=== PATIENT | female | born 1935 | race Caucasian/White ===

== ENCOUNTER 2016-10-24 11:24 | Emergency (ER) | payer MEDICARE ==
--- NOTE | 2016-10-24 12:31 | ERRECORD ---
[facility] EMERGENCY RECORD HPI WOUND CHECK (12:17 JLOY) CHIEF COMPLAINT: Patient presents for evaluation of Pt had a lipoma removed from her left upper back [address] Morillo. He left a drain in with instructions to follow up on Wednesday for removal. Pt's daughter has been caring for her but had to leave today. The patient became confused between the standard postop instructions and the specific handwritten instructions and was unsure if she should remove the op-site bandage over the drain. Review of the specific instructions reveal she is to leave the op-site in place until wednesday. Pt has had very little drainage and the sutured wound is c/d/i. No pain. No fever. No other concerns. HISTORIAN: History provided by patient, History provided by patient's family. TIME COURSE: Patient unable to describe onset of symptoms, Symptoms are improving. ASSOCIATED WITH: No associated chills, No associated drainage, No associated fever, No associated proximal streaking, No associated redness. EXACERBATED BY: Patient's condition exacerbated by nothing. RELIEVED BY: Patient's condition relieved by time. ROS (12:20 JLOY) CONSTITUTIONAL: Historian denies chills, denies fever. GI: Historian denies nausea, denies vomiting. SKIN: Historian denies cellulitis, denies rash. PAST MEDICAL HISTORY MEDICAL HISTORY: Notes: ARTHRITIS, Flu vaccine not up to date, Pneumococcal vaccine up to date, Past medical history includes history of diabetes, Past medical history includes endocrine disease, hypothyroidism, Past medical history includes history of hyperlipidemia, Past medical history includes history of hypertension. (11:34 EPIE) FEMALE SURGICAL HISTORY: Lipoma removal on back, BREAT REDUCTION, Surgical history of appendectomy, Surgical history of hysterectomy, Surgical history of orthopedic surgery, LEFT FOOT, LEFT INDEX FINGER, Surgical history of tonsillectomy. (11:34 EPIE) SOCIAL HISTORY: Patient drinks socially, Patient denies drug use, Patient has no smoking history. (11:34 EPIE) NOTES: Nursing records reviewed, Agree with nursing records. (12:22 JLOY) KNOWN ALLERGIES codeine sulfate morphine (bulk) CURRENT MEDICATIONS traMADol: TABLET : Strength - 50 mg : ORAL Patient Dose: 50 mg Oral every 6 hours PRN. (11:35 EPIE) Flonase: &a-1R&a+25V*p+0X*[id number]*c202B*c15G*c2P*p-0X&a-25V&a+1R Name: Dot Post : 1935 F81 MedRec: [id number] AcctNum: [id number] Prepared: Sat Oct 24, 2016 12:26 by Interface Page [address] [facility] EMERGENCY RECORD SPRAY, SUSPENSION : Strength - 50 mcg : NASAL Patient Dose: 2 spray(s) 2 times a day. (11:37 EPIE) Claritin: TABLET : Strength - 10 mg : ORAL Patient Dose: 10 mg Oral once a day. (11:37 EPIE) Synthroid: TABLET : Strength - 100 mcg : ORAL Patient Dose: UNK. (11:37 EPIE) amLODIPine: TABLET : Strength - 10 mg : ORAL Patient Dose: UNK. (11:38 EPIE) atorvastatin: TABLET : Strength - 10 mg : ORAL Patient Dose: UNK. (11:38 EPIE) amitriptyline: TABLET : Strength - 10 mg : ORAL Patient Dose: UNK. (11:38 EPIE) losartan: TABLET : Strength - 100 mg : ORAL Patient Dose: UNK. (11:38 EPIE) carvedilol: TABLET : Strength - 12.5 mg : ORAL Patient Dose: UNK. (11:39 EPIE) metFORMIN: TABLET : Strength - 500 mg : ORAL Patient Dose: UNK. (11:39 EPIE) VITAL SIGNS (11:30 EPIE) VITAL SIGNS: BP: 156/69, Pulse: 69, Resp: 20, Temp: 98.4 (Oral), Pain: 1, O2 sat: 95 on Room Air, Time: 10/24/2016 11:30. PHYSICAL EXAM (12:21 [facility]) CONSTITUTIONAL: Vital signs reviewed, Patient appears non toxic, Patient alert and oriented to person, place and time. EYES: Eye exam included findings of eyelids normal to inspection, Pupils equally round and reactive to light, Conjunctiva normal. RESPIRATORY CHEST: Respiratory exam included findings of no respiratory distress, Chest exam included findings of chest movement symmetrical. BACK: Back exam included findings of, left upper back with long sutured incision well healing with no redness, drainage, or tenderness. Palpable drain beneath with exit of the drain caudally through and c/d/I exit incision. Op-site over the exit is well adhered with no signs of drainage or infection. Bulb of drain with small serosanguinous fluid. NEURO: Enid coma scale 15, Neuro exam findings include patient oriented to person, place and time, Speech normal. SKIN: Skin exam included findings of skin warm, dry, and normal in color, no rash. PSYCHIATRIC: Normal affect. &a-1R&a+25V*p+0X*r7518B*c202B*c15G*c2P*p-0X&a-25V&a+1R Name: Dot Post : 1935 F81 MedRec: [id number] AcctNum: [id number] Prepared: Sat Oct 24, 2016 12:26 by Interface Page [address] [facility] EMERGENCY RECORD PROBLEM LIST No recorded problems DIAGNOSIS (12:15 JLOY) FINAL: PRIMARY: OTH SPC COMP SURG MED CARE NEC INIT. PRESCRIPTION No recorded prescriptions DISPOSITION PATIENT: Disposition Type: Discharge, Disposition: *Discharge Home. (12:15 JLOY) Patient left the department. (12:25 EPIE) Delgado: EPIKaila=SOFI Clancy, Jaclyn JLOY=MD Harpreet, Larry &a-1R&a+25V*p+0X*[id number]*c202B*c15G*c2P*p-0X&a-25V&a+1R Name: Dot Post : 1935 F81 MedRec: [id number] AcctNum: [id number] Prepared: Sat Oct 24, 2016 12:26 by Interface Page 3 of 3 pMD MTDD
--- NOTE | 2016-10-24 12:34 | PICIS ---
[facility] EMERGENCY RECORD TRIAGE (11:32 EPIE) TRIAGE NOTES: Pt states she got surgery morning. Pt had a removal of a lipoma on her back. Pt states she might need her dressing changed. (11:32 EPIE) PATIENT: NAME: Dot Post, AGE: 81, GENDER: female, : Wed1935, TIME OF GREET: Sat Oct 24, 2016 11:26, PREFERRED LANGUAGE: Japanese, ETHNICITY: Not or , ECODE BILLING MAP: [facility], SSN: [id number], Zip Code: [address], KG WEIGHT: 61.23, PHONE: , , , PERSON ID: [id number], PCP: Tino DAVIS LUKE. (11:32 EPIE) COMPLAINT: CHECK SURGICAL SITE. (11:32 EPIE) ADMISSION: URGENCY: 4 Non Urgent, ADMISSION SOURCE: Home, TRANSPORT: CAR, BED: TRIAGE. (11:32 EPIE) TRIAGE SCREENING: Patient denies suicidal ideation, Patient denies presence of domestic violence. (11:34 EPIE) TREATMENTS IN PROGRESS: Treatments given Prehospital: none. (11:34 EPIE) PROVIDERS: TRIAGE NURSE: Jaclyn Clancy RN. (11:32 EPIE) VITAL SIGNS: BP 156/69, Pulse 69, Resp 20, Temp 98.4, (Oral), Pain 1, O2 Sat 95, on Room Air, Time 10/24/2016 11:30. (11:30 EPIE) PREVIOUS VISIT ALLERGIES: codeine sulfate, morphine (bulk). (11:32 EPIE) codeine sulfate, morphine (bulk). (11:34 EPIE) KNOWN ALLERGIES codeine sulfate morphine (bulk) CURRENT MEDICATIONS traMADol: TABLET : Strength - 50 mg : ORAL Patient Dose: 50 mg Oral every 6 hours PRN. (11:35 EPIE) Flonase: SPRAY, SUSPENSION : Strength - 50 mcg : NASAL Patient Dose: 2 spray(s) 2 times a day. (11:37 EPIE) Claritin: TABLET : Strength - 10 mg : ORAL Patient Dose: 10 mg Oral once a day. (11:37 EPIE) Synthroid: TABLET : Strength - 100 mcg : ORAL Patient Dose: UNK. (11:37 EPIE) amLODIPine: TABLET : Strength - 10 mg : ORAL Patient Dose: UNK. (11:38 EPIE) atorvastatin: TABLET : Strength - 10 mg : ORAL Patient Dose: UNK. (11:38 EPIE) amitriptyline: TABLET : Strength - 10 mg : ORAL &a-1R&a+25V*p+0X*o3306Z*c202B*c15G*c2P*p-0X&a-25V&a+1R Name: Dot Post : 1935 F81 MedRec: [id number] AcctNum: [id number] Prepared: Sat Oct 24, 2016 12:32 by Interface Page 1 of 4 pMD [facility] EMERGENCY RECORD Patient Dose: UNK. (11:38 EPIE) losartan: TABLET : Strength - 100 mg : ORAL Patient Dose: UNK. (11:38 EPIE) carvedilol: TABLET : Strength - 12.5 mg : ORAL Patient Dose: UNK. (11:39 EPIE) metFORMIN: TABLET : Strength - 500 mg : ORAL Patient Dose: UNK. (11:39 EPIE) VITAL SIGNS (11:30 EPIE) VITAL SIGNS: BP: 156/69, Pulse: 69, Resp: 20, Temp: 98.4 (Oral), Pain: 1, O2 sat: 95 on Room Air, Time: 10/24/2016 11:30. NURSING ASSESSMENT: SKIN (11:42 EPIE) CONSTITUTIONAL: Patient arrives ambulatory, Gait steady, History obtained from patient, Patient appears comfortable, Patient cooperative, Patient alert, Oriented to person, place and time, Skin warm, Skin dry, Skin normal in color, Mucous membranes pink, Mucous membranes moist, Patient is well-groomed, Pt states she got surgery morning. Pt had a removal of a lipoma on her back. Pt states she might need her dressing changed. She states that she has conflicting paperwork on whether she is supposed to change her dressing daily. PAIN: Patient rates pain as 0 out of 10. SKIN: Skin assessment findings include skin warm, Skin dry, Skin normal in color, Notes: Pt has surgical incision to upper back. Wound well approximated, no redness, or swelling. No drainage noted from wound. Pt has TRICIA Drain draining serosanginous fluids. NURSING ASSESSMENT: TUBES AND PORTS (11:41 EPIE) TUBES AND PORTS: Tube present, TRICIA Drain, to upper back, No signs of infection at insertion site. NURSING PROCEDURE: DISCHARGE NOTE (12:20 EPIE) DISCHARGE: Patient discharged to home, ambulating without assistance, family driving, accompanied by other family member, Summary of Care printed/ provided, Discharge instructions given to patient, Simple or moderate discharge teaching performed, Above person(s) verbalized understanding of discharge instructions and follow-up care. BELONGINGS: Belongings and valuables with patient upon arrival to the Emergency Department include:, Belongings and valuables with patient at time of discharge include:, Belongings remain with patient, Valuables remain with patient. NURSING PROCEDURE: NURSE NOTES (11:59 BDON) NURSES NOTES: Warm blanket given to patient. &a-1R&a+25V*p+0X*x2300Q*c202B*c15G*c2P*p-0X&a-25V&a+1R Name: Dot Post : 1935 F81 MedRec: [id number] AcctNum: [id number] Prepared: Ángel Oct 24, 2016 12:32 by Interface Page 2 of 4 pMD [facility] EMERGENCY RECORD HPI WOUND CHECK (12:17 [facility]) CHIEF COMPLAINT: Patient presents for evaluation of Pt had a lipoma removed from her left upper back [address] Morillo. He left a drain in with instructions to follow up on Wednesday for removal. Pt's daughter has been caring for her but had to leave today. The patient became confused between the standard postop instructions and the specific handwritten instructions and was unsure if she should remove the op-site bandage over the drain. Review of the specific instructions reveal she is to leave the op-site in place until wednesday. Pt has had very little drainage and the sutured wound is c/d/i. No pain. No fever. No other concerns. HISTORIAN: History provided by patient, History provided by patient's family. TIME COURSE: Patient unable to describe onset of symptoms, Symptoms are improving. ASSOCIATED WITH: No associated chills, No associated drainage, No associated fever, No associated proximal streaking, No associated redness. EXACERBATED BY: Patient's condition exacerbated by nothing. RELIEVED BY: Patient's condition relieved by time. ROS (12:20 JL) CONSTITUTIONAL: Historian denies chills, denies fever. GI: Historian denies nausea, denies vomiting. SKIN: Historian denies cellulitis, denies rash. PAST MEDICAL HISTORY MEDICAL HISTORY: Notes: ARTHRITIS, Flu vaccine not up to date, Pneumococcal vaccine up to date, Past medical history includes history of diabetes, Past medical history includes endocrine disease, hypothyroidism, Past medical history includes history of hyperlipidemia, Past medical history includes history of hypertension. (11:34 EPIE) FEMALE SURGICAL HISTORY: Lipoma removal on back, BREAT REDUCTION, Surgical history of appendectomy, Surgical history of hysterectomy, Surgical history of orthopedic surgery, LEFT FOOT, LEFT INDEX FINGER, Surgical history of tonsillectomy. (11:34 EPIE) SOCIAL HISTORY: Patient drinks socially, Patient denies drug use, Patient has no smoking history. (11:34 EPIE) NOTES: Nursing records reviewed, Agree with nursing records. (12:22 JL) PHYSICAL EXAM (12:21 JL) CONSTITUTIONAL: Vital signs reviewed, Patient appears non toxic, Patient alert and oriented to person, place and time. EYES: Eye exam included findings of eyelids normal to inspection, Pupils equally round and reactive to light, Conjunctiva normal. RESPIRATORY CHEST: Respiratory exam included findings of no respiratory distress, Chest exam included findings of chest movement symmetrical. BACK: Back exam included findings of, left upper &a-1R&a+25V*p+0X*y7127P*c202B*c15G*c2P*p-0X&a-25V&a+1R Name: Dot Post : 1935 F81 MedRec: [id number] AcctNum: [id number] Prepared: Ángel Oct 24, 2016 12:32 by Interface Page 3 of 4 pMD [facility] EMERGENCY RECORD back with long sutured incision well healing with no redness, drainage, or tenderness. Palpable drain beneath with exit of the drain caudally through and c/d/I exit incision. Op-site over the exit is well adhered with no signs of drainage or infection. Bulb of drain with small serosanguinous fluid. NEURO: Itzel coma scale 15, Neuro exam findings include patient oriented to person, place and time, Speech normal. SKIN: Skin exam included findings of skin warm, dry, and normal in color, no rash. PSYCHIATRIC: Normal affect. EVENTS TRANSFER: Triage to Emergency Triage. (Sat Oct 24, 2016 11:32 EPIE) Emergency Triage to Emergency Room -02. (11:33 EPIE) Removed from Emergency Emergency Room -02. (12:25 EPIE) PROBLEM LIST No recorded problems DIAGNOSIS (12:15 JLOY) FINAL: PRIMARY: OTH SPC COMP SURG MED CARE NEC INIT. DISPOSITION PATIENT: Disposition Type: Discharge, Disposition: *Discharge Home. (12:15 JLOY) Patient left the department. (12:25 EPIE) INSTRUCTION (12:16 JLOY) FOLLOWUP: Tino DAVIS LUKE, Internal Medicine, [address] [place] [address], , MD Ilia, [place], General Surgery, [address] [place] [address], [address] [address], , Follow up with Specialist as scheduled. SPECIAL: Continue to follow the handwritten discharge instructions for your surgery and follow up as scheduled with Dr. Morillo in 2 days. PRESCRIPTION No recorded prescriptions IMAGING (12:25 EPIE) *DISCHARGE INSTRUCTIONS RECEIPT: Image captured from scanner. *SUPPLY CHARGE SHEET: Image captured from scanner. ADMIN (12:23 [facility]) DIGITAL SIGNATURE: MD Mullins Joshua. Delgado: SANTIAGO=SOFI Graf, Viktoriya EPIE=SOFI Clancy, Jaclyn [facility]=MD Mullins Joshua &a-1R&a+25V*p+0X*x2171O*c202B*c15G*c2P*p-0X&a-25V&a+1R Name: Dot Post : 1935 F81 MedRec: [id number] AcctNum: [id number] Prepared: Sat Oct 24, 2016 12:32 by Interface Page 4 of 4 pMD [facility] MEDICATION RECONCILIATION You were seen in the Emergency Department on: Sat Oct 24, 2016 KNOWN ALLERGIES codeine sulfate morphine (bulk) HOME MEDICATIONS CONTINUE PRESCRIBED amitriptyline : TABLET : Strength - 10 mg : ORAL Continue as prescribed Patient had been taking: UNK. amLODIPine : TABLET : Strength - 10 mg : ORAL Continue as prescribed Patient had been taking: UNK. atorvastatin : TABLET : Strength - 10 mg : ORAL Continue as prescribed Patient had been taking: UNK. carvedilol : TABLET : Strength - 12.5 mg : ORAL Continue as prescribed Patient had been taking: UNK. Claritin : TABLET : Strength - 10 mg : ORAL Continue as prescribed Patient had been takin mg Oral once a day. Flonase : SPRAY, SUSPENSION : Strength - 50 mcg : NASAL Continue as prescribed Patient had been takin spray(s) 2 times a day. losartan : TABLET : Strength - 100 mg : ORAL Continue as prescribed Patient had been taking: UNK. metFORMIN : TABLET : Strength - 500 mg : ORAL Continue as prescribed Patient had been taking: UNK. Synthroid : TABLET : Strength - 100 mcg : ORAL Continue as prescribed Patient had been taking: UNK. &a-1R&a+25V*p+0X*i0299O*c202B*c15G*c2P*p-0X&a-25V&a+1R Name: Dot Post : 1935 F81 MedRec: [id number] AcctNum: [id number] Prepared: Sat Oct 24, 2016 12:32 by Interface pMD [facility] MEDICATION RECONCILIATION traMADol : TABLET : Strength - 50 mg : ORAL Continue as prescribed Patient had been takin mg Oral every 6 hours PRN. &a-1R&a+25V*p+0X*t1215M*c202B*c15G*c2P*p-0X&a-25V&a+1R Name: Dot Post : 1935 F81 MedRec: [id number] AcctNum: [id number] Prepared: Sat Oct 24, 2016 12:32 by Interface pMD [facility]
== END 2016-10-24 12:20 | disposition home or self-care (01) ==
LOC: NAV ERS 11:24
DX: L76.82 Other postprocedural complications of skin and subcutaneous tissue (principal); E11.9 Type 2 diabetes mellitus without complications; E03.9 Hypothyroidism, unspecified; E78.5 Hyperlipidemia, unspecified; I10 Essential (primary) hypertension
CPT/HCPCS: 99283

== ENCOUNTER 2017-06-09 09:57 | Outpatient (CLI) | payer MEDICARE ==
[2017-06-09 12:33] LABS: #Basophils 0.1 thou/uL (0.0-0.2); #Eosinphils 0.3 thou/uL (0.0-0.7); #Lymphocytes 2.2 thou/uL (1.20-3.40); #Monocytes 0.6 thou/uL (0.11-0.59); %Basophils 1.4 % (0.0-1.0); %Eosinophils 5.2 % (0.0-10.0); %Lymphocytes 35.7 % (21.0-51.0); %Monocytes 9.4 % (0.0-10.0); %Neutrophils 48.3 % (42.0-75.0); Hemoglobin 11.9 g/dL (12.0-16.0); Mean Corpuscular HGB CONC 31.3 g/dL (32.0-36.0); Mean Corpuscular Hemoglobin 26.5 pg (27.0-31.0); Mean Corpuscular Volume 84.4 fl (81.0-99.0); Mean Platelet Volume 9.5 fL (7.4-10.4); Platelet Count 237 thou/uL (130-400); RBC Distribution Width 14.4 % (11.5-14.5); Red Blood Cell (RBC) Count 4.51 mill/uL (4.20-5.40); White Blood Cell (WBC) Count 6.3 thou/uL (4.8-10.8)
[2017-06-09 12:54] LABS: Bilirubin Negative (Negative); Blood, Urine Negative (Negative); Clarity Slightly Cloudy (Clear); Glucose, Urine (Dipstick) Negative (Negative); Leukocyte Small (Negative); Nitrite Negative (Negative); Protein, Urine (Dipstick) Negative (Neg-Trace); Urobilinogen 0.2 mg/dL (0.2-1.0)
[2017-06-09 12:55] LABS: ALT (SGPT) 21 U/L (8-55); AST (SGOT) 19 U/L (5-34); Albumin 4.3 g/dL (3.4-4.8); Alkaline Phosphatase 54 U/L (40-150); Anion Gap 16 mmol/L (10-20); BUN (Urea Nitrogen) 16 mg/dL (9.8-20.1); Bilirubin, Total 0.6 mg/dL (0.2-1.2); Calc. Creatinine Clearance 0 mL/min (70-130); Calcium 9.8 mg/dL (7.8-10.44); Carbon Dioxide 24 mmol/L (23-31); Cardiac Risk 3.2 (Less than 4.5); Chloride 106 mmol/L (98-107); Cholesterol 118 mg/dl (< 200 Desired); Estimated GFR-MDRD 81; Globulin 2.5 g/dL (2.4-3.5); Glucose 109 mg/dL (83-110); HDL Cholesterol 37 mg/dL (>60 Neg Risk); LDL Cholesterol, Calculated 62 mg/dL; Potassium 4.6 mmol/L (3.5-5.1); Protein, Total 6.8 g/dL (6.0-8.3); Sodium 141 mmol/L (136-145); Triglycerides 95 mg/dL (Less than 150)
[2017-06-09 13:00] LABS: Hemoglobin A1c 6.1 % (4.0-6.0)
[2017-06-09 13:11] LABS: Bacteria/HPF 3+ HPF (None Seen); RBC/HPF 0-3 HPF (0-3); Squamous Epithelial 0-3 HPF (0-3); WBC/HPF 21-50 HPF (0-3)
[2017-06-09 17:59] LABS: Creatinine, Urine 111.19 mg/dL (47-110); Microalbumin Urine 1.8 mg/dL (0.5-50.0); Microalbumin/Creat Ratio 16.2 mg/g (Less than 30)
== END 2017-06-09 09:58 | disposition home or self-care (01) ==
LOC: NAVSJIPCSP 09:57
PROVIDERS: ATTEND Internal Medicine
DX: N39.0 Urinary tract infection, site not specified (principal); Z79.899 Other long term (current) drug therapy
CPT/HCPCS: 36415; 80053; 80061; 81003; 81015; 82043; 83036; 84443; 85025; 87077; 87086; 87186

== ENCOUNTER 2017-06-16 13:57 | Outpatient (CLI) | payer MEDICARE | END 2017-06-16 13:58 | disposition home or self-care (01) | LOC: NAVSJIPCSP 13:57 | PROVIDERS: ATTEND Internal Medicine | DX: N39.0 Urinary tract infection, site not specified (principal) | CPT/HCPCS: 36415; 87086 ==

== ENCOUNTER 2018-01-26 15:06 | Emergency (ER) | payer MEDICARE ==
[2018-01-26] MEDS ORDERED: Ketorolac Tromethamine 60 MG/2 ML VIAL ONE (15:58)
--- NOTE | 2018-01-26 21:32 | RAD ---
LEFT SHOULDER THREE VIEWS: History: 82-year-old female with history of left shoulder pain. 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 AC joint arthrosis. No evidence for acute fracture or dislocation. No periprosthetic fracture. 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 No acute fracture or dislocation. POS: [facility]
== END 2018-01-26 16:18 | disposition home or self-care (01) ==
LOC: NAV ERS 15:06
DX: M25.512 Pain in left shoulder (principal); E11.9 Type 2 diabetes mellitus without complications; E03.9 Hypothyroidism, unspecified; E78.5 Hyperlipidemia, unspecified; I10 Essential (primary) hypertension; Z79.899 Other long term (current) drug therapy; Z79.891 Long term (current) use of opiate analgesic; Z79.84 Long term (current) use of oral hypoglycemic drugs
CPT/HCPCS: 93005; 96372; J1885

== ENCOUNTER 2019-02-12 17:59 | Emergency (ER) | payer MEDICARE ==
[2019-02-12] MEDS ORDERED: traMADol HCl 50 MG TAB ONE (18:27)
--- NOTE | 2019-02-12 19:00 | CT ---
Head CT without contrast 02/12/2019: HISTORY: Fall, trauma, pain TECHNIQUE: Axial CT imaging at 5 mm intervals from vertex through skull base without contrast. Aguilar l and sagittal reformatted imaging obtained FINDINGS: No intracranial hemorrhage, midline shift, mass effect, or ventricular enlargement. There is mild focal scalp swelling in the left frontal region. No displaced calvarial fracture. IMPRESSION: Focal area of left frontal scalp swelling with no associated fracture or intracranial hem orrhage.
[2019-02-12] MEDS ORDERED: Acetaminophen 500 MG TAB ONE (19:39)
--- NOTE | 2019-02-12 20:23 | CT ---
CT FACIAL BONES: Date: 02-12-19 Comparison: None. History: Fall, trauma, pain. Technique: Axial CT imaging at 2.5 mm intervals through the facial bones with coronal and sagittal re formatted imaging. FINDINGS: The frontal sinuses are hypoplastic. Maxillary sinuses, sphenoid sinuses, ethmoid air cells, and imag ed mastoid air cells unremarkable. Nasal bones, zygomatic arches and pterygoid plates appear intact. There is a focal area of scalp swelling in the anterior left frontal region. There is degenerative ch jenna involving bilateral temporomandibular joints. No mandibular fracture is seen. There is prominent degenerative change at the atlantoaxial interspace and the C1-2 articulation. There is no acute fracture seen. Orbital floor and medial orbital wall appears intact bilaterally. IMPRESSION: No acute fracture seen. POS: OFF
== END 2019-02-12 19:52 | disposition home or self-care (01) ==
LOC: NAV ERS 17:59
DX: S00.33XA Contusion of nose, initial encounter (principal); S80.02XA Contusion of left knee, initial encounter; S00.83XA Contusion of other part of head, initial encounter; I10 Essential (primary) hypertension; E11.9 Type 2 diabetes mellitus without complications; E03.9 Hypothyroidism, unspecified; K21.9 Gastro-esophageal reflux disease without esophagitis; E78.5 Hyperlipidemia, unspecified; Z79.899 Other long term (current) drug therapy; W19.XXXA Unspecified fall, initial encounter
CPT/HCPCS: 70450; 70486; 93005

== ENCOUNTER 2019-02-28 09:30 | Outpatient (CLI) | payer MEDICARE ==
[~2019-02-28 09:30] MED LIST: Iopamidol 300 61% 100 ML VIAL FS ONE
--- NOTE | 2019-02-28 13:45 | CT ---
CT ABDOMEN WITH AND WITHOUT IV CONTRAST: Date: 02/28/19 HISTORY: Acute pancreatitis. FINDINGS: Comparison made with exam of 06/04/18. The lung bases are unremarkable. No calcified gallstones are seen. There are calcified granulomas in the spleen. The liver, pancreas, right adrenal gland, and left kidney are normal. No peripancreatic inflammatory changes or fluid lauren ections are identified. There is a low density lesion in the right renal cortex, likely cyst, which w as also seen on the previous study. There is a 1.7 cm left adrenal nodule consistent with benign jennifer daniela. No free air, free fluid, or lymphadenopathy seen in the abdomen. There are vascular calcifications wi thout evidence of aneurysmal dilatation of the abdominal aorta. There are degenerative changes in the spine. No portosplenic thrombosis is seen. A small hiatal hernia is present. IMPRESSION: 1. No evidence of complications of pancreatitis. 2. Left adrenal adenoma. 3. Calcified splenic granulomas. 4. Small hiatal hernia. POS: [facility]
== END 2019-02-28 09:31 | disposition home or self-care (01) ==
LOC: NAV CT 09:30
PROVIDERS: ATTEND Internal Medicine
DX: K85.90 Acute pancreatitis without necrosis or infection, unspecified (principal); D35.02 Benign neoplasm of left adrenal gland; D73.89 Other diseases of spleen; K44.9 Diaphragmatic hernia without obstruction or gangrene
CPT/HCPCS: 74170; Q9967

== ENCOUNTER 2019-12-13 10:27 | Emergency (ER) | payer MEDICARE ==
[~2019-12-13 10:27] MED LIST changes: -Iopamidol 300 61% 100 ML VIAL FS ONE; +Iopamidol 370 76% 100 ML VIAL ONE
[2019-12-13] MEDS ORDERED: Sodium Chloride 0.9% 1,000 ML ONE (11:20)
[2019-12-13] MEDS ORDERED: Fentanyl 100 MCG/2 ML VIAL ONE ×3 (11:21→15:41)
[2019-12-13] MEDS ORDERED: Ondansetron PF 4 MG/2 ML Vial ONE ×2 (11:23→13:17)
[2019-12-13 11:29] LABS: #Basophils 0.1 thou/uL (0.0-0.2); #Eosinphils 0.1 thou/uL (0.0-0.7); #Lymphocytes 1.2 thou/uL (1.20-3.40); #Monocytes 0.6 thou/uL (0.11-0.59); #Neutrophils 10.9 thou/uL (1.40-6.50); %Basophils 0.5 % (0.0-1.0); %Eosinophils 0.5 % (0.0-10.0); %Lymphocytes 9.3 % (21.0-51.0); %Monocytes 4.8 % (0.0-10.0); Hemoglobin 15.5 g/dL (12.0-16.0); Mean Corpuscular HGB CONC 33.5 g/dL (32.0-36.0); Mean Corpuscular Hemoglobin 30.1 pg (27.0-31.0); Mean Corpuscular Volume 89.8 fL (78.0-98.0); Mean Platelet Volume 10.9 fL (7.4-10.4); Platelet Count 265 thou/uL (130-400); RBC Distribution Width 11.9 % (11.5-14.5); Red Blood Cell (RBC) Count 5.14 mill/uL (4.20-5.40); White Blood Cell (WBC) Count 12.8 thou/uL (4.8-10.8)
[2019-12-13 11:44] LABS: Bilirubin Negative (Negative); Blood, Urine Trace (Negative); Clarity Slightly Cloudy (Clear); Glucose, Urine (Dipstick) Negative (Negative); Leukocyte Negative (Negative); Nitrite Positive (Negative); Protein, Urine (Dipstick) 100 mg/dL (Neg-Trace); Urobilinogen 0.2 mg/dL (Less than 2)
[2019-12-13 11:45] LABS: RBC/HPF 0-3 HPF (0-3)
[2019-12-13 11:46] LABS: Bacteria/HPF 4+ HPF (None Seen)
[2019-12-13 12:13] LABS: ALT (SGPT) 23 U/L (8-55); AST (SGOT) 16 U/L (5-34); Albumin 4.3 g/dL (3.4-4.8); Alkaline Phosphatase 57 U/L (40-110); Anion Gap 16 mmol/L (10-20); BUN (Urea Nitrogen) 21 mg/dL (9.8-20.1); Bilirubin, Total 0.7 mg/dL (0.2-1.2); Calc. Creatinine Clearance 0 mL/min (70-130); Calcium 9.6 mg/dL (7.8-10.44); Carbon Dioxide 27 mmol/L (23-31); Chloride 101 mmol/L (98-107); Estimated GFR-MDRD 76; Globulin 2.9 g/dL (2.4-3.5); Glucose 182 mg/dL (83-110); Lipase 16 U/L (8-78); Potassium 4.7 mmol/L (3.5-5.1); Protein, Total 7.2 g/dL (6.0-8.3); Sodium 139 mmol/L (136-145)
--- NOTE | 2019-12-13 12:18 | RAD ---
2 VIEWS OF ABDOMEN AND UPRIGHT VIEW OF CHEST: Date: 12/13/2019 HISTORY: Abdominal pain with nausea, vomiting, and fever. FINDINGS: Supine and upright views of the abdomen and upright view of the chest shows a nonspecific, nonobstruc charlette bowel gas pattern. There are a few air-fluid levels within a loop of small bowel in the left abdo men on the upright exam. No significant distention of the small bowel loops is seen. No free air is i dentified. Degenerative changes are seen in the spine. The patient has bilateral shoulder prostheses. There is a normal sized cardiomediastinal silhouette. IMPRESSION: Nonobstructed bowel gas pattern. POS: [facility] [place]
--- NOTE | 2019-12-13 14:40 | CT ---
CT ABDOMEN AND PELVIS WITH ORAL AND IV CONTRAST: Date: 12/13/2019 HISTORY: Nausea and vomiting with elevated WBCs. COMPARISON: 02/28/2019 and 06/04/2018. FINDINGS: The lung bases are unremarkable. There are calcified granulomas in the spleen. There is fatty infiltr ation of the liver without mass or abnormal biliary ductal dilatation. No calcified gallstones are se en. The 1.7 cm left adrenal nodule consistent with benign adenoma is stable. Probable cyst in the rig ht renal cortex is stable. Left kidney is unremarkable. No free air or lymphadenopathy is seen. There is a small amount of free fluid in the abdomen and pelv is. The proximal small bowel loops are mildly dilated and fluid-filled. There are vascular calcifications without evidence of aneurysmal dilatation of the abdominal aorta. T here are degenerative changes in the spine. IMPRESSION: 1. Fatty liver. 2. Calcified splenic granulomas. 3. Stable left adrenal adenoma. 4. Small amount of free fluid in the abdomen and pelvis. 5. Findings suggestive of small bowel obstruction. POS: [facility]
== END 2019-12-13 16:21 | disposition short-term general hospital (02) ==
LOC: NAV ERS 10:27
DX: K56.609 Unspecified intestinal obstruction, unspecified as to partial versus complete obstruction (principal); E11.9 Type 2 diabetes mellitus without complications; E03.9 Hypothyroidism, unspecified; K21.9 Gastro-esophageal reflux disease without esophagitis; E78.5 Hyperlipidemia, unspecified; I10 Essential (primary) hypertension; M19.90 Unspecified osteoarthritis, unspecified site; F32.9 Major depressive disorder, single episode, unspecified; Z79.899 Other long term (current) drug therapy; Z79.891 Long term (current) use of opiate analgesic
CPT/HCPCS: 74022; 74177; 80053; 81003; 81015; 83690; 84484; 85025; 93005; 96361; 96374; 96375; 96376; J2405; J3010; J7050; Q9967

== ENCOUNTER 2020-12-16 14:34 | Emergency (ER) | payer MEDICARE ==
[2020-12-16 15:55] LABS: #Basophils 0.1 thou/uL (0.0-0.2); #Eosinphils 0.3 thou/uL (0.0-0.7); #Lymphocytes 1.9 thou/uL (1.20-3.40); #Monocytes 0.8 thou/uL (0.11-0.59); #Neutrophils 3.6 thou/uL (1.40-6.50); %Basophils 1.5 % (0.0-1.0); %Eosinophils 3.9 % (0.0-10.0); %Lymphocytes 28.5 % (21.0-51.0); %Monocytes 11.6 % (0.0-10.0); %Neutrophils 54.4 % (42.0-75.0); Hemoglobin 12.6 g/dL (12.0-16.0); Mean Corpuscular HGB CONC 32.6 g/dL (32.0-36.0); Mean Corpuscular Hemoglobin 29.9 pg (27.0-31.0); Mean Corpuscular Volume 91.8 fL (78.0-98.0); Mean Platelet Volume 9.8 fL (7.4-10.4); Platelet Count 187 thou/uL (130-400); RBC Distribution Width 12.3 % (11.5-14.5); White Blood Cell (WBC) Count 6.7 thou/uL (4.8-10.8)
[2020-12-16 16:09] LABS: ALT (SGPT) 21 U/L (8-55); AST (SGOT) 18 U/L (5-34); Albumin 4.1 g/dL (3.4-4.8); Alkaline Phosphatase 55 U/L (40-110); Anion Gap 15 mmol/L (10-20); BUN (Urea Nitrogen) 20 mg/dL (9.8-20.1); Bilirubin, Total 0.5 mg/dL (0.2-1.2); Calc. Creatinine Clearance 0 mL/min (70-130); Calcium 9.6 mg/dL (7.8-10.44); Carbon Dioxide 22 mmol/L (23-31); Chloride 105 mmol/L (98-107); Globulin 2.6 g/dL (2.4-3.5); Glucose 117 mg/dL (83-110); Lipase 24 U/L (8-78); Potassium 4.1 mmol/L (3.5-5.1); Protein, Total 6.7 g/dL (5.8-8.1); Sodium 138 mmol/L (136-145)
== END 2020-12-16 17:15 | disposition home or self-care (01) ==
LOC: NAV ERS 14:34
DX: S16.1XXA Strain of muscle, fascia and tendon at neck level, initial encounter (principal); S39.012A Strain of muscle, fascia and tendon of lower back, initial encounter; S29.012A Strain of muscle and tendon of back wall of thorax, initial encounter; S81.011A Laceration without foreign body, right knee, initial encounter; S50.311A Abrasion of right elbow, initial encounter; E11.9 Type 2 diabetes mellitus without complications; E03.9 Hypothyroidism, unspecified; K21.9 Gastro-esophageal reflux disease without esophagitis; E78.5 Hyperlipidemia, unspecified; E78.00 Pure hypercholesterolemia, unspecified; I10 Essential (primary) hypertension; M19.90 Unspecified osteoarthritis, unspecified site; Z79.899 Other long term (current) drug therapy; W18.30XA Fall on same level, unspecified, initial encounter
CPT/HCPCS: 72125; 72128; 72131; 80053; 83690; 85025

== ENCOUNTER 2021-03-06 13:20 | Outpatient (CLI) | payer MEDICARE | END 2021-03-06 13:21 | disposition home or self-care (01) | LOC: NAV RAD 13:20 | PROVIDERS: ATTEND Internal Medicine | DX: S93.402A Sprain of unspecified ligament of left ankle, initial encounter (principal); M19.072 Primary osteoarthritis, left ankle and foot; Z98.890 Other specified postprocedural states ==

== ENCOUNTER 2022-03-07 10:44 | Emergency (ER) | payer MEDICARE ==
[2022-03-07] MEDS ORDERED: Ketorolac Tromethamine 30 MG/ML VIAL ONE (11:20)
[2022-03-07] MEDS ORDERED: traMADol HCl 50 MG TAB ONE (11:20)
[2022-03-07 11:41] LABS: #Basophils 0.1 thou/uL (0.0-0.2); #Eosinphils 0.2 thou/uL (0.0-0.7); #Lymphocytes 1.6 thou/uL (1.20-3.40); #Monocytes 0.7 thou/uL (0.11-0.59); #Neutrophils 3.8 thou/uL (1.40-6.50); %Eosinophils 3.7 % (0.0-10.0); %Lymphocytes 24.6 % (21.0-51.0); %Monocytes 10.9 % (0.0-10.0); %Neutrophils 59.7 % (42.0-75.0); Hemoglobin 12.4 g/dL (12.0-16.0); Mean Corpuscular HGB CONC 31.8 g/dL (32.0-36.0); Mean Corpuscular Hemoglobin 29.6 pg (27.0-31.0); Mean Corpuscular Volume 93.2 fL (78.0-98.0); Mean Platelet Volume 10.1 fL (7.4-10.4); Platelet Count 213 thou/uL (130-400); RBC Distribution Width 12.4 % (11.5-14.5); Red Blood Cell (RBC) Count 4.19 mill/uL (4.20-5.40); White Blood Cell (WBC) Count 6.3 thou/uL (4.8-10.8)
[2022-03-07 11:56] LABS: ALT (SGPT) 22 U/L (8-55); AST (SGOT) 18 U/L (5-34); Albumin 3.9 g/dL (3.4-4.8); Alkaline Phosphatase 57 U/L (40-110); Anion Gap 16 mmol/L (10-20); BUN (Urea Nitrogen) 15 mg/dL (9.8-20.1); Bilirubin, Total 0.8 mg/dL (0.2-1.2); CK (CPK) 52 U/L (29-168); Calc. Creatinine Clearance 0 mL/min (70-130); Carbon Dioxide 25 mmol/L (23-31); Chloride 104 mmol/L (98-107); Globulin 2.9 g/dL (2.4-3.5); Glucose 158 mg/dL (83-110); Protein, Total 6.8 g/dL (5.8-8.1); Sodium 141 mmol/L (136-145)
[2022-03-07 12:02] LABS: Bilirubin Negative (Negative); Blood, Urine Trace (Negative); Clarity Clear (Clear); Glucose, Urine (Dipstick) Negative (Negative); Ketone, Urine Negative (Negative); Leukocyte Moderate (Negative); Nitrite Positive (Negative); Protein, Urine (Dipstick) Negative (Neg-Trace); Urobilinogen 0.2 mg/dL (Less than 2); pH, Urine 5.5 (5.0-9.0)
[2022-03-07 12:06] LABS: RBC/HPF 0-3 HPF (0-3); Squamous Epithelial None Seen HPF (0-3); WBC/HPF Greater than 50 HPF (0-3)
[2022-03-07 12:07] LABS: Bacteria/HPF 2+ HPF (None Seen)
== END 2022-03-07 12:35 | disposition home or self-care (01) ==
LOC: NAV ERS 10:44
DX: M16.0 Bilateral primary osteoarthritis of hip (principal); M17.0 Bilateral primary osteoarthritis of knee; N39.0 Urinary tract infection, site not specified; I10 Essential (primary) hypertension; E11.9 Type 2 diabetes mellitus without complications; E03.9 Hypothyroidism, unspecified; K21.9 Gastro-esophageal reflux disease without esophagitis; E78.5 Hyperlipidemia, unspecified; E78.00 Pure hypercholesterolemia, unspecified; Z79.899 Other long term (current) drug therapy
CPT/HCPCS: 36415; 80053; 81003; 81015; 82550; 85025; 87077; 87086; 87186; 96372; 99283; J1885

== ENCOUNTER 2022-03-20 20:25 | Emergency (ER) | payer MEDICARE ==
[2022-03-20 20:44] LABS: Bilirubin Negative (Negative); Blood, Urine Trace (Negative); Clarity Slightly Cloudy (Clear); Glucose, Urine (Dipstick) Negative (Negative); Ketone, Urine Negative (Negative); Leukocyte Large (Negative); Nitrite Negative (Negative); Protein, Urine (Dipstick) Negative (Neg-Trace); Urobilinogen 0.2 mg/dL (Less than 2); pH, Urine 5.5 (5.0-9.0)
[2022-03-20 20:50] LABS: Bacteria/HPF 2+ HPF (None Seen); RBC/HPF 0-3 HPF (0-3); Squamous Epithelial 0-3 HPF (0-3); WBC/HPF 21-50 HPF (0-3)
[2022-03-20] MEDS ORDERED: Nitrofurantoin Macrocrystal 50 MG CAP ONE (21:16)
== END 2022-03-20 21:42 | disposition home or self-care (01) ==
LOC: NAV ERS 20:25
DX: N39.0 Urinary tract infection, site not specified (principal); E11.9 Type 2 diabetes mellitus without complications; E03.9 Hypothyroidism, unspecified; K21.9 Gastro-esophageal reflux disease without esophagitis; E78.5 Hyperlipidemia, unspecified; E78.00 Pure hypercholesterolemia, unspecified; I10 Essential (primary) hypertension; M19.90 Unspecified osteoarthritis, unspecified site
CPT/HCPCS: 81003; 81015; 87077; 87086; 87186; 99283

== ENCOUNTER 2022-03-27 10:06 | Outpatient (CLI) | payer MEDICARE | END 2022-03-27 10:07 | disposition home or self-care (01) | LOC: NAV CT 10:06 | PROVIDERS: ATTEND Family Medicine | DX: R91.8 Other nonspecific abnormal finding of lung field (principal) | CPT/HCPCS: 71250 ==

== ENCOUNTER 2022-03-31 15:52 | Emergency (ER) | payer OTHER, MEDICARE | END 2022-03-31 17:20 | disposition short-term general hospital (02) | LOC: NAV ERS 15:52 | DX: M79.605 Pain in left leg (principal); M79.89 Other specified soft tissue disorders; E11.9 Type 2 diabetes mellitus without complications; E03.9 Hypothyroidism, unspecified; K21.9 Gastro-esophageal reflux disease without esophagitis; E78.5 Hyperlipidemia, unspecified; E78.00 Pure hypercholesterolemia, unspecified; I10 Essential (primary) hypertension; M19.90 Unspecified osteoarthritis, unspecified site; Z79.899 Other long term (current) drug therapy | CPT/HCPCS: 99284 ==

== ENCOUNTER 2022-05-01 13:02 | Emergency (ER) | payer MEDICARE | END 2022-05-01 13:35 | disposition home or self-care (01) | LOC: NAV ERS 13:02 | DX: B02.9 Zoster without complications (principal); E11.9 Type 2 diabetes mellitus without complications; E03.9 Hypothyroidism, unspecified; K21.9 Gastro-esophageal reflux disease without esophagitis; E78.5 Hyperlipidemia, unspecified; I10 Essential (primary) hypertension; Z79.899 Other long term (current) drug therapy | CPT/HCPCS: 99282 ==

== ENCOUNTER 2023-03-02 16:01 | Emergency (ER) | payer MEDICARE | END 2023-03-02 18:09 | disposition home or self-care (01) | LOC: NAV ERS 16:01 | DX: R05.3 Chronic cough (principal); J45.909 Unspecified asthma, uncomplicated; K21.9 Gastro-esophageal reflux disease without esophagitis; E11.9 Type 2 diabetes mellitus without complications; Z79.899 Other long term (current) drug therapy | CPT/HCPCS: 71046 ==

== ENCOUNTER 2023-05-30 16:56 | Emergency (ER) | payer MEDICARE, OTHER ==
[2023-05-30] MEDS ORDERED: Gabapentin 100 MG CAP PO SCH (19:00)
== END 2023-05-30 19:12 | disposition home or self-care (01) ==
LOC: NAV ERS 16:56
DX: J90 Pleural effusion, not elsewhere classified (principal); Z90.2 Acquired absence of lung [part of]; E11.9 Type 2 diabetes mellitus without complications; E03.9 Hypothyroidism, unspecified; K21.9 Gastro-esophageal reflux disease without esophagitis; E78.00 Pure hypercholesterolemia, unspecified; Z79.899 Other long term (current) drug therapy; Z79.84 Long term (current) use of oral hypoglycemic drugs
CPT/HCPCS: 71046

== ENCOUNTER 2024-03-01 19:45 | Emergency (ER) | payer MEDICARE ==
[2024-03-01 20:49] LABS: #Basophils 0.1 thou/uL (0.0-0.2); #Eosinphils 0.3 thou/uL (0.0-0.7); #Lymphocytes 2.4 thou/uL (1.20-3.40); #Monocytes 0.9 thou/uL (0.11-0.59); #Neutrophils 6.9 thou/uL (1.40-6.50); %Basophils 0.7 % (0.0-1.0); %Eosinophils 2.4 % (0.0-10.0); %Lymphocytes 22.6 % (21.0-51.0); %Monocytes 8.8 % (0.0-10.0); %Neutrophils 65.5 % (42.0-75.0); Hematocrit 44.3 % (36.0-47.0); Hemoglobin 13.5 g/dL (12.0-16.0); Mean Corpuscular HGB CONC 30.6 g/dL (32.0-36.0); Mean Corpuscular Volume 88.5 fl (78.0-98.0); Mean Platelet Volume 8.8 fL (7.4-10.4); Platelet Count 235 10x3/uL (130-400); RBC Distribution Width 14.1 % (11.5-14.5); White Blood Cell (WBC) Count 10.5 10x3/uL (4.8-10.8)
[2024-03-01 21:01] LABS: ALT (SGPT) 21 U/L (8-55); AST (SGOT) 16 U/L (5-34); Albumin 4.5 g/dL (3.4-4.8); Alkaline Phosphatase 95 U/L (40-110); Anion Gap 18 mmol/L (10-20); BUN (Urea Nitrogen) 24 mg/dL (9.8-20.1); Bilirubin, Total 0.6 mg/dL (0.2-1.2); Calc. Creatinine Clearance 0 mL/min (70-130); Calcium 9.6 mg/dL (7.8-10.44); Carbon Dioxide 22 mmol/L (23-31); Chloride 103 mmol/L (98-107); Estimated GFR 57; Globulin 3.4 g/dL (2.4-3.5); Glucose 251 mg/dL (83-110); Potassium 4.5 mmol/L (3.5-5.1); Protein, Total 7.9 g/dL (5.8-8.1); Sodium 138 mmol/L (136-145)
[2024-03-01 21:02] LABS: Troponin I Less than 0.010 ng/mL (< 0.028)
[2024-03-01] MEDS ORDERED: Amlodipine 5 MG TAB ONE (21:42)
[2024-03-02 11:35] LABS: Hemoglobin A1c 6.9 % (4.0-6.0)
== END 2024-03-01 21:54 | disposition home or self-care (01) ==
LOC: NAV ERS 19:45
DX: I10 Essential (primary) hypertension (principal); E11.9 Type 2 diabetes mellitus without complications; E03.9 Hypothyroidism, unspecified; K21.9 Gastro-esophageal reflux disease without esophagitis; E78.00 Pure hypercholesterolemia, unspecified; Z79.899 Other long term (current) drug therapy
CPT/HCPCS: 36415; 80053; 83036; 84484; 85025; 93005

== ENCOUNTER 2024-08-30 10:47 | Outpatient (CLI) | payer MEDICARE | END 2024-08-30 10:48 | disposition home or self-care (01) | LOC: NAV CT 10:47 | PROVIDERS: ATTEND Student in an Organized Health Care Education/Training Program | DX: G45.9 Transient cerebral ischemic attack, unspecified (principal); I67.89 Other cerebrovascular disease; R90.89 Other abnormal findings on diagnostic imaging of central nervous system; J34.89 Other specified disorders of nose and nasal sinuses | CPT/HCPCS: 70450 ==

== ENCOUNTER 2025-06-14 09:25 | Emergency (ER) | payer MEDICARE | END 2025-06-14 10:35 | disposition home or self-care (01) | LOC: NAV ERS 09:25 | DX: J06.9 Acute upper respiratory infection, unspecified (principal); I10 Essential (primary) hypertension; E11.9 Type 2 diabetes mellitus without complications; E78.00 Pure hypercholesterolemia, unspecified; K21.9 Gastro-esophageal reflux disease without esophagitis; E03.9 Hypothyroidism, unspecified; Z79.890 Hormone replacement therapy; Z79.899 Other long term (current) drug therapy | CPT/HCPCS: 87426; 99283 ==

== ENCOUNTER 2025-06-16 16:27 | Emergency (ER) | payer MEDICARE ==
[2025-06-16] MEDS ORDERED: Albuterol 2.5 MG (3 mL) NEB ONE (16:58)
== END 2025-06-16 18:07 | disposition home or self-care (01) ==
LOC: NAV ERS 16:27
DX: J20.9 Acute bronchitis, unspecified (principal); E03.9 Hypothyroidism, unspecified; I10 Essential (primary) hypertension
CPT/HCPCS: 71046; 94640; J7611